=== PATIENT | female | born 1995 | race Caucasian/White ===

== ENCOUNTER 2016-09-13 18:14 | Emergency (ER) | payer OTHER ==
--- NOTE | 2016-09-13 20:10 | ER Document Report ---
ED Medical Screen (RME) - General Stated Complaint: VAGINAL BLEEDING WITH Notes: Patient complains of mild lower abdominal cramping with vaginal bleeding today. Patient is about 8 weeks . Patient states that at her last [facility] appointment she was told she has a yeast infection, and has been using Monistat as prescribed by her doctor. No known fever, patient does take likely just for occasional nausea. No vomiting. I have greeted and performed a rapid initial assessment of this patient. A comprehensive ED assessment and evaluation of the patient, analysis of test results and completion of the medical decision making process will be conducted by additional ED providers. - Related Data Allergies/Adverse Reactions: No Known Allergies Allergy (Unverified 09/13/16 20:09) Physical Exam - Vital signs Vitals: Temp Pulse Resp BP Pulse Ox 98.3 F 89 16 118/73 99 09/13/16 18:26 09/13/16 18:26 09/13/16 18:26 09/13/16 18:26 09/13/16 18:26 - Abdominal Notes: Mild tenderness lower abdomen, bowel sounds normal. Course - Vital Signs Vital signs: Temp Pulse Resp BP Pulse Ox 98.3 F 89 16 118/73 99 09/13/16 18:26 09/13/16 18:26 09/13/16 18:26 09/13/16 18:26 09/13/16 18:26
--- NOTE | 2016-09-14 00:18 | ER Document Report ---
ED GI/ - General Chief Complaint: Vag Bleeding, +preg <12wks Stated Complaint: VAGINAL BLEEDING WITH Time seen by provider: 00:18 Mode of Arrival: Ambulatory Information source: Patient TRAVEL OUTSIDE OF THE [place] 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, 3 days ago, had an ultrasound done and was reported to have a mild yeast infection, was started on Monistat cream, which she has been using, she had some mild cramping earlier in the day, but the spotting and cramping has stopped, patient is - Related Data Allergies/Adverse Reactions: No Known Allergies Allergy (Unverified 09/13/16 20:09) Past Medical History - General Information source: Patient - Social History Smoking Status: Never Smoker Chew tobacco use (# tins/day): No Frequency of alcohol use: None Drug Abuse: None Family History: Reviewed & Not Pertinent Patient has suicidal ideation: No Patient has homicidal ideation: No Renal/ Medical History: Denies: Hx Peritoneal Dialysis Review of Systems - Review of Systems Constitutional: No symptoms reported EENT: No symptoms reported Cardiovascular: No symptoms reported Respiratory: No symptoms reported Gastrointestinal: No symptoms reported Genitourinary: No symptoms reported Female Genitourinary: See HPI Musculoskeletal: No symptoms reported Skin: No symptoms reported Hematologic/Lymphatic: No symptoms reported Neurological/Psychological: No symptoms reported -: Yes All other systems reviewed and negative Physical Exam - Vital signs Vitals: Temp Pulse Resp BP Pulse Ox 98.3 F 89 16 118/73 99 09/13/16 18:26 09/13/16 18:26 09/13/16 18:26 09/13/16 18:26 09/13/16 18:26 Interpretation: Normal - General General appearance: Appears well, Alert - HEENT Head: Normocephalic, Atraumatic Eyes: Normal Pupils: PERRL - Respiratory Respiratory status: No respiratory distress Chest status: Nontender Breath sounds: Normal Chest palpation: Normal - Cardiovascular Rhythm: Regular Heart sounds: Normal auscultation Murmur: No - Abdominal Inspection: Normal Distension: No distension Bowel sounds: Normal Tenderness: Nontender Organomegaly: No organomegaly - Back Back: Normal, Nontender - Extremities General upper extremity: Normal inspection, Nontender, Normal color, Normal ROM , Normal temperature General lower extremity: Normal inspection, Nontender, Normal color, Normal ROM , Normal temperature, Normal weight bearing. No: Sylvester's sign - Neurological Neuro grossly intact: Yes Cognition: Normal Orientation: AAOx4 [place]i Coma Scale Eye Opening: Spontaneous [place] Coma Scale Verbal: Oriented [place] Coma Scale Motor: Obeys Commands [place] Coma Scale Total: 15 Speech: Normal Motor strength normal: LUE, RUE, LLE, RLE Sensory: Normal - Psychological Associated symptoms: Normal affect, Normal mood - Skin Skin Temperature: Warm Skin Moisture: Dry Skin Color: Normal Course - Re-evaluation Re-evalutation: 09/14/16 03:56 Lab and imaging findings discussed with patient at bedside, she was started on antibiotics for urinary tract infection and advised to follow-up with her OB/ PARTS PROFESSIONAL in one to 2 days or return if symptoms worsen, patient and spouse at bedside acknowledge understanding and agreement with this plan - Vital Signs Vital signs: Temp Pulse Resp BP Pulse Ox 98.3 F 97 16 124/70 99 09/14/16 02:22 09/14/16 02:22 09/14/16 02:22 09/14/16 02:22 09/14/16 02:22 - Laboratory Result Diagrams: 09/14/16 00:52 09/14/16 00:52 Laboratory results interpreted by me: 09/14/16 09/14/16 09/14/16 00:52 00:52 02:10 WBC 11.4 H Absolute Neutrophils 8.3 H BUN 5 L Creatinine 0.49 L Beta HCG, Quant 509610.00 H Urine Blood SMALL H Ur Leukocyte Esterase TRACE H - Diagnostic Test Radiology reviewed: Image reviewed, Reports reviewed Discharge - Discharge Clinical Impression: Vaginal bleeding before 22 weeks gestation Urinary tract infection Qualifiers: Urinary tract infection type: site unspecified Hematuria presence: without hematuria Qualified Code(s): N39.0 - Urinary tract infection, site not specified Condition: Stable Disposition: HOME, SELF-CARE Instructions: Urinary Tract Infection ([facility]), Vaginal Bleeding ([facility]) Additional Instructions: Follow up with your primary care provider in one to 2 days. Return to the emergency room immediately if symptoms worsen or any additional concerns. Prescriptions: Nitrofurantoin/Nitrofuran Mac [Macrobid 100 mg Capsule] 100 mg PO BID #20 capsule
[2016-09-14 01:21] LABS: ABSOLUTE EOSINOPHILS # (AUTO) 0.1 10^3/uL (0.0-0.6); ABSOLUTE LYMPHOCYTES (AUTO) 2.2 10^3/uL (0.5-4.7); ABSOLUTE MONOCYTES (AUTO) 0.8 10^3/uL (0.1-1.4); ABSOLUTE NEUT (AUTO) 8.3 10^3/uL (1.7-8.2); BASOPHILS % (AUTO) 0.3 % (0-2); HEMATOCRIT 37.3 % (36.0-47.0); HEMOGLOBIN 12.7 g/dL (12.0-15.5); HGB HCT DIFFERENCE 0.8; LYMPHOCYTES % (AUTO) 18.9 % (13-45); MEAN CORPUSCULAR HEMOGLOBIN 28.9 pg (27.0-33.4); MEAN CORPUSCULAR HGB CONC 33.9 g/dL (32.0-36.0); MEAN CORPUSCULAR VOLUME 85 fl (80-97); MONOCYTES % (AUTO) 7.1 % (3-13); RED BLOOD COUNT 4.39 10^6/uL (3.72-5.28); RED CELL DISTRIBUTION WIDTH 13.7 % (11.5-14.0); SEGMENTED NEUTROPHILS % (AUTO) 72.7 % (42-78); WHITE BLOOD COUNT 11.4 10^3/uL (4.0-10.5)
[2016-09-14 01:25] LABS: ALANINE AMINOTRANSFERASE 33 U/L (9-52); ALKALINE PHOSPHATASE 123 U/L (38-126); ANION GAP 12 (5-19); ASPARTATE AMINO TRANSFERASE 28 U/L (14-36); BILIRUBIN,TOTAL 0.3 mg/dL (0.2-1.3); BLOOD UREA NITROGEN 5 mg/dL (7-20); CALCIUM 9.6 mg/dL (8.4-10.2); CARBON DIOXIDE 25 mmol/L (22-30); CHLORIDE 101 mmol/L (98-107); CREATININE RESULT 0.49 mg/dL (0.52-1.25); GLUCOSE 92 mg/dL (75-110); POTASSIUM 4.5 mmol/L (3.6-5.0); SODIUM 138.3 mmol/L (137-145); TOTAL PROTEIN 6.8 g/dL (6.3-8.2)
[2016-09-14 02:29] LABS: AMORPHOUS SEDIMENT,URINE TRACE /HPF; APPEARANCE,URINE SLIGHTLY-CLOUDY; BILIRUBIN,URINE NEGATIVE (NEGATIVE); GLUCOSE, URINE NEGATIVE (NEGATIVE); KETONES,URINE NEGATIVE (NEGATIVE); LEUKOCYTE ESTERASE,URINE TRACE (NEGATIVE); NITRITE,URINE NEGATIVE (NEGATIVE); PROTEIN,URINE NEGATIVE (NEGATIVE); URINE SPECIFIC GRAVITY 1.011; UROBILINOGEN,URINE NEGATIVE mg/dL (<2.0)
[2016-09-14] MEDS ORDERED: NITROFURANTOIN MONOHYD/M-CRYST 100 MG CAPSULE PO ONE (02:36)
[2016-09-14 02:55] VITALS: BP 124/70
== END 2016-09-14 02:50 | disposition home or self-care (01) ==
LOC: ER 18:14
DX: O46.90 Antepartum hemorrhage, unspecified, unspecified trimester (principal); O23.40 Unspecified infection of urinary tract in pregnancy, unspecified trimester; O98.819 Other maternal infectious and parasitic diseases complicating pregnancy, unspecified trimester; B37.9 Candidiasis, unspecified; Z3A.00 Weeks of gestation of pregnancy not specified
CPT/HCPCS: 99284; 86900; 86901; 36415; 84702; 85025; 80053; 81001; 76817; 93976; J8499

== ENCOUNTER 2017-04-30 16:27 | Outpatient (CLI) | payer OTHER ==
[2017-04-30 17:10] LABS: APPEARANCE,URINE SLIGHTLY-CLOUDY; BILIRUBIN,URINE NEGATIVE (NEGATIVE); GLUCOSE, URINE NEGATIVE (NEGATIVE); KETONES,URINE NEGATIVE (NEGATIVE); LEUKOCYTE ESTERASE,URINE SMALL (NEGATIVE); NITRITE,URINE NEGATIVE (NEGATIVE); PROTEIN,URINE NEGATIVE (NEGATIVE); URINE SPECIFIC GRAVITY 1.013; UROBILINOGEN,URINE NEGATIVE mg/dL (<2.0)
[2017-04-30 17:41] LABS: URINE BARBITURATES SCREEN NEGATIVE; URINE METHADONE SCREEN NEGATIVE; URINE OPIATES LOW NEGATIVE; URINE PHENCYCLIDINE SCREEN NEGATIVE
== END 2017-04-30 17:14 | disposition home or self-care (01) ==
LOC: LC 16:27
PROVIDERS: ATTEND Obstetrics & Gynecology
PROC: 4A1HXCZ Monitoring of Products of Conception, Cardiac Rate, External Approach (ICD-10-PCS; principal; 2017-04-30)
DX: O47.1 False labor at or after 37 completed weeks of gestation (principal); Z3A.41 41 weeks gestation of pregnancy
CPT/HCPCS: 59025; 80307; 81005

== ENCOUNTER 2019-08-06 08:36 | Inpatient (IN) | payer OTHER ==
[2019-08-06] MEDS ORDERED: CEFAZOLIN SODIUM 2 GM in DEXTROSE 5%-WATER 100 ML IV PRN (09:22)
[2019-08-06 10:15] LABS: APPEARANCE,URINE CLOUDY; BILIRUBIN,URINE NEGATIVE (NEGATIVE); COLOR,URINE AMBER; GLUCOSE, URINE NEGATIVE (NEGATIVE); KETONES,URINE NEGATIVE (NEGATIVE); LEUKOCYTE ESTERASE,URINE LARGE (NEGATIVE); NITRITE,URINE NEGATIVE (NEGATIVE); PROTEIN,URINE 30 mg/dL (NEGATIVE); URINE SPECIFIC GRAVITY 1.025
[2019-08-06 10:21] LABS: ABSOLUTE EOSINOPHILS # (AUTO) 0.1 10^3/uL (0.0-0.6); ABSOLUTE LYMPHOCYTES (AUTO) 2.3 10^3/uL (0.5-4.7); ABSOLUTE MONOCYTES (AUTO) 0.7 10^3/uL (0.1-1.4); ABSOLUTE NEUT (AUTO) 7.6 10^3/uL (1.7-8.2); BASOPHILS % (AUTO) 0.4 % (0-2); EOSINOPHILS % (AUTO) 0.5 % (0-6); HEMATOCRIT 28.8 % (36.0-47.0); HEMOGLOBIN 9.4 g/dL (12.0-15.5); LYMPHOCYTES % (AUTO) 21.5 % (13-45); MEAN CORPUSCULAR HEMOGLOBIN 24.5 pg (27.0-33.4); MEAN CORPUSCULAR HGB CONC 32.8 g/dL (32.0-36.0); MEAN CORPUSCULAR VOLUME 75 fl (80-97); MONOCYTES % (AUTO) 6.8 % (3-13); PLATELET COUNT 258 10^3/uL (150-450); RED BLOOD COUNT 3.85 10^6/uL (3.72-5.28); RED CELL DISTRIBUTION WIDTH 15.6 % (11.5-14.0); SEGMENTED NEUTROPHILS % (AUTO) 70.8 % (42-78); TOTAL CELLS COUNTED % (AUTO) 100 %; WHITE BLOOD COUNT 10.7 10^3/uL (4.0-10.5)
[2019-08-06] MEDS ORDERED: INFLUENZA QUAD (6MOS+) 2019-20 VAC 0.5 ML SYR IM ONE (10:28)
[2019-08-06 10:30] LABS: URINE AMPHETAMINES SCREEN NEGATIVE; URINE BARBITURATES SCREEN NEGATIVE; URINE BENZODIAZEPINES SCREEN NEGATIVE; URINE COCAINE SCREEN NEGATIVE; URINE MARIJUANA (THC) SCREEN NEGATIVE; URINE METHADONE SCREEN NEGATIVE; URINE PHENCYCLIDINE SCREEN NEGATIVE
[2019-08-06] MEDS ORDERED: FENTANYL CITRATE INJ/PF 100 MCG/2 ML AMPUL ONE (11:39)
[2019-08-06] MEDS ORDERED: DIPHENHYDRAMINE HCL 50 MG/ML VIAL ONE (11:39)
[2019-08-06] MEDS ORDERED: MIDAZOLAM 2 MG/2 ML INJ ONE (11:39)
[2019-08-06] MEDS ORDERED: OXYTOCIN/NORMAL SALINE 20 UNIT/1,000 ML RTUINJ ONE (11:39)
[2019-08-06] MEDS ORDERED: KETOROLAC TROMETHAMINE INJ/PF 30 MG/1 ML SDV ONE ×2 (11:39→11:40)
[2019-08-06] MEDS ORDERED: OXYTOCIN 10 UNIT/ML VIAL ONE (11:39)
[2019-08-06] MEDS ORDERED: GLYCOPYRROLATE INJ 0.4 MG/2 ML VIAL ONE (11:39)
[2019-08-06] MEDS ORDERED: ONDANSETRON HCL INJ/PF 4 MG/2 ML SDV ONE (11:40)
[2019-08-06] MEDS ORDERED: ACETAMINOPHEN 1,000 MG/100 ML RTUPB IV ONE (11:40)
--- NOTE | 2019-08-06 13:12 | PDOC DELIVERY SUMMARY ---
Delivery Summary - Maternal Hx : II Hx # Term Pregnancies: 1 Hx # Pregnancies: 0 Hx Total # of Abortions (Sponateous & Elective): 0 CARLOS: 07/28/19 Gestational Age: 41.2 Ruptured Membranes: AROM Time of Rupture: 12:34 Fluids: Clear - Delivery Presentation: Vertex Heart Rate Monitoring: Done Pre-Operatively Support Person Present: Yes Location: OR : Scheduled Placenta: Within Normal Limits Delivery of Placenta Date: 08/06/19 Delivery of Placenta Time: 12:36 - Medications Type of Anesthesia:: Spinal - Assess and Care Baby 1 Male Delivery of Date: 08/06/19 Delivery of Infant Time: 12:35 at 1 minute: 8 at 5 minutes: 9 Preprinted Number On Band: [id number] Skin to Skin: No To Nursery At: 12:43 Mode of Transport: Bassinet Delivery Weight: 4,550 Infant Delivery Length: 21.75 in - Delivery Personnel Nursery RN: ANUEL JAFFE MD: NITZA MERCER
--- NOTE | 2019-08-06 13:15 | Operative Report ---
Operative Report DATE OF SURGERY: 08/06/19 PREOPERATIVE DIAGNOSIS: macrosomia POSTOPERATIVE DIAGNOSIS: Same with tight double nuchal cord OPERATION: Primary via low transverse uterine incision SURGEON: NITZA MERCER ANESTHESIA: Spinal TISSUE REMOVED OR ALTERED: Placenta COMPLICATIONS: None ESTIMATED BLOOD LOSS: 400 cc INTRAOPERATIVE FINDINGS: Viable male crying at delivery PROCEDURE: Patient was taken to the OR and placed in supine position after her spinal anesthesia. She is prepared and draped in sterile fashion. Malloy was placed for drainage of the bladder. Low transverse incision was made and carried down the level of the fascia. The fascial incision was made with knife and extended bilaterally with curved Eastman scissors. The fascia was off the rectus muscles using sharp and blunt dissection. The rectus muscles are in the midline. The peritoneum was entered without incident. Bladder blade was placed in uterine segment was identified. A low transverse incision was made creating a bladder flap. Bladder blade was placed low transverse uterine incision was made with the knife and extended with fingertips. The baby was delivered with some fundal pressure. The tight double nuchal cord was reduced. Mouth and nose were suctioned free. The cord is doubly clamped and cut. Baby is passed off to the platform inspector in attendance. The placenta was manually extracted with trailing membranes. The uterus was externalized wrapped in a moist lap sponge. Uterine contents wiped free. Uterus was closed with a running locking layer of 0 chromic suture using the second layer to imbricate the first completing a double layer closure of the uterus. The serosa was closed with a running 2-0 chromic stitch. The pelvis was irrigated and suctioned free of fluid the uterus was replaced in the abdomen. The abdominal wall peritoneum was closed with running 2-0 chromic stitch. Fascia was closed with a running 0 Vicryl in 2 segments. Zachary's layer was brought together with 0 plain gut stitch and the skin was closed with running subcuticular 4-0 undyed Vicryl stitch. The wound was dressed mother and baby did well.
[2019-08-06] MEDS ORDERED: ONDANSETRON HCL INJ/PF 4 MG/2 ML SDV IV PRN (13:19)
[2019-08-06] MEDS ORDERED: MEPERIDINE HCL/PF INJ 25 MG/1 ML DISP.SYRIN IV PRN (13:19)
[2019-08-06] MEDS ORDERED: MORPHINE SULFATE 10 MG/ML INJ IV PRN (13:19)
[2019-08-06] MEDS ORDERED: FENTANYL CITRATE INJ/PF 100 MCG/2 ML AMPUL IV PRN ×3 (13:19)
[2019-08-06] MEDS ORDERED: OXYCODONE-ACETAMINOPHEN 5-325 MG TABLET PO PRN ×4 (13:19→17:06)
[2019-08-06] MEDS ORDERED: DIPHENHYDRAMINE HCL 50 MG/ML VIAL IV PRN (13:19)
[2019-08-06] MEDS ORDERED: PROMETHAZINE HCL INJ 25 MG/1 ML VIAL IV PRN ×3 (13:19→17:06)
[2019-08-06] MEDS ORDERED: OXYTOCIN/NORMAL SALINE 20 UNIT/1,000 ML RTUINJ IV PRN (17:06)
[2019-08-06] MEDS ORDERED: MEASLES,MUMPS&RUBELLA VACC/PF 0.5 ML VIAL SUBCUT PRN (17:06)
[2019-08-06] MEDS ORDERED: ACETAMINOPHEN 325 MG TABLET PO PRN (17:06)
[2019-08-06] MEDS ORDERED: SIMETHICONE 80 MG TAB.CHEW PO PRN (17:06)
[2019-08-06] MEDS ORDERED: ACETAMINOPHEN 1,000 MG/100 ML RTUPB IV PRN (17:06)
[2019-08-06] MEDS ORDERED: DIPH/PERTUSS(ACELL)/TETANUS VAC/PF 0.5 ML SYR (>=10YO) IM PRN (17:06)
[2019-08-06] MEDS ORDERED: HYDROMORPHONE HCL INJ/PF 2 MG/ML AMPULE IV PRN (17:06)
[2019-08-06] MEDS ORDERED: OXYCODONE-ACETAMINOPHEN 5-325 MG TABLET ONE (17:23)
[2019-08-06] MEDS: DOCUSATE SODIUM 100 MG CAPSULE PO SCH (18:14)
[2019-08-06] MEDS: RINGERS SOLUTION,LACTATED 1,000 ML IV PRN (18:55)
[2019-08-06] MEDS: KETOROLAC TROMETHAMINE INJ/PF 30 MG/1 ML SDV IV SCH (22:01)
[2019-08-07] MEDS: RINGERS SOLUTION,LACTATED 1,000 ML IV PRN (02:58)
[2019-08-07] MEDS: KETOROLAC TROMETHAMINE INJ/PF 30 MG/1 ML SDV IV SCH ×2 (05:08→15:29)
[2019-08-07 07:49] LABS: HEMATOCRIT 29.7 % (36.0-47.0); HEMOGLOBIN 9.6 g/dL (12.0-15.5); MEAN CORPUSCULAR HEMOGLOBIN 24.2 pg (27.0-33.4); MEAN CORPUSCULAR HGB CONC 32.2 g/dL (32.0-36.0); MEAN CORPUSCULAR VOLUME 75 fl (80-97); PLATELET COUNT 248 10^3/uL (150-450); RED BLOOD COUNT 3.95 10^6/uL (3.72-5.28)
[2019-08-07] MEDS: DOCUSATE SODIUM 100 MG CAPSULE PO SCH ×2 (10:10→17:59)
[2019-08-07] MEDS: PRENATAL VITAMIN W DHA CAPSULE PO SCH (10:10)
--- NOTE | 2019-08-07 10:46 | PDOC PROGRESS REPORT ---
Subjective-OB Progress Note for:: 08/07/19 Subjective: Doing well, no c/o, eating well, voiding, ambulating, , + gas Physical Exam (OB) Vital Signs: Temp Pulse Resp BP Pulse Ox 98.1 F 74 18 102/64 97 08/07/19 07:38 08/07/19 07:38 08/07/19 07:38 08/07/19 07:38 08/07/19 07:38 Intake & Output 08/06/19 08/07/19 08/08/19 06:59 06:59 06:59 Intake Total 3140 Output Total 2500 Balance 640 Weight 102.512 kg - Dressing Removed: No Incision: Dressing - Lochia Lochia Amount: Small 10-25 ml Lochia Color: Rubra/Red - Abdomen Description: Tender, Soft Hernia Present: No Fundal Description: Firm, Midline Fundal Height: u/u - u/2 Objective-Diagnostic Laboratory: 08/07/19 07:31 08/06/19 08/07/19 09:58 07:31 WBC 12.0 H RBC 3.95 Hgb 9.6 L Hct 29.7 L MCV 75 L MCH 24.2 L MCHC 32.2 RDW 16.0 H Plt Count 248 Blood Type O POSITIVE Antibody Screen NEGATIVE Assessment and Plan(PN) - Assessment and Plan (1) Macrosomia affecting management of mother in third trimester Qualifiers: Fetus number: single or unspecified fetus Qualified Code(s): O36.63X0 - Maternal care for excessive growth, third trimester, not applicable or unspecified Is this a current diagnosis for this admission?: Yes (2) Anemia Qualifiers: Anemia type: iron deficiency Is this a current diagnosis for this admission?: Yes (3) S/P primary low transverse Is this a current diagnosis for this admission?: Yes - Time Spent with Patient Time with patient: Less than 15 minutes Medications reviewed and adjusted accordingly: Yes - Disposition Anticipated Discharge: Home Within: within 24 hours
[2019-08-07] MEDS: IBUPROFEN 800 MG TABLET PO SCH (23:04)
[2019-08-08] MEDS: IBUPROFEN 800 MG TABLET PO SCH ×2 (05:49→13:19)
[2019-08-08] MEDS: DOCUSATE SODIUM 100 MG CAPSULE PO SCH (09:40)
[2019-08-08] MEDS: PRENATAL VITAMIN W DHA CAPSULE PO SCH (09:40)
--- NOTE | 2019-08-08 10:08 | PDOC PROGRESS REPORT ---
Subjective-OB Progress Note for:: 08/08/19 Subjective: Doing well, no c/o, voiding, pain under control, eating, + gas, ambulating Physical Exam (OB) Vital Signs: Temp Pulse Resp BP Pulse Ox 97.9 F 65 16 105/65 96 08/08/19 07:51 08/08/19 07:51 08/08/19 07:51 08/08/19 07:51 08/08/19 07:51 Intake & Output 08/07/19 08/08/19 08/09/19 06:59 06:59 06:59 Intake Total 3140 1380 Output Total 2500 Balance 640 1380 Weight 102.512 kg - PIH/Pre-Eclampsia Headache: Absent Epigastric Pain: No Visual Changes: No - Dressing Removed: Yes Incision: Open, Well Approximated Closure Type: Surgical Glue - Lochia Lochia Amount: Scant < 10 ml Lochia Color: Rubra/Red - Abdomen Description: Soft Hernia Present: No Fundal Description: Firm, Midline Fundal Height: u/u - u/2 Objective-Diagnostic Laboratory: 08/07/19 07:31 Assessment and Plan(PN) - Assessment and Plan (1) Macrosomia affecting management of mother in third trimester Qualifiers: Fetus number: single or unspecified fetus Qualified Code(s): O36.63X0 - Maternal care for excessive growth, third trimester, not applicable or unspecified Is this a current diagnosis for this admission?: Yes (2) Anemia Qualifiers: Anemia type: iron deficiency Is this a current diagnosis for this admission?: Yes (3) S/P primary low transverse Is this a current diagnosis for this admission?: Yes - Time Spent with Patient Time with patient: Less than 15 minutes Medications reviewed and adjusted accordingly: Yes - Disposition Anticipated Discharge: Home Within: within 24 hours
--- NOTE | 2019-08-08 10:19 | PDOC DISCHARGE SUMMARY ---
Impression - Admit/DC Date/PCP Admission Date/Primary Care Provider: 08/06/19 08:36 NITZA MERCER MD Discharge Date: 08/08/19 - Discharge Diagnosis (1) Macrosomia affecting management of mother in third trimester Is this a current diagnosis for this admission?: Yes (2) Anemia Is this a current diagnosis for this admission?: Yes (3) S/P primary low transverse Is this a current diagnosis for this admission?: Yes - Additional Information Resuscitation Status: Full Code Discharge Diet: As Tolerated, Regular Discharge Activity: Balance Activity w/Rest, No Lifting Over 10 Pounds, Pelvic Rest, No tub bath Referrals: NITZA MERCER MD [Primary Care Provider] - (wha 1 week) Prescriptions: Oxycodone HCl/Acetaminophen [Percocet 5-325 mg Tablet] 1 tab PO Q4HP PRN #20 tablet PRN Reason: Ibuprofen [Motrin 800 mg Tablet] 800 mg PO Q6 #30 tablet Home Medications: Vit,Calc76/Iron/Folic [Prenatabs Rx Tablet] 1 tab PO DAILY 04/30/17 Ferrous Sulfate [Feosol 325 mg Tablet] 325 mg PO QAM #60 tablet 05/04/17 Ibuprofen [Motrin 800 mg Tablet] 800 mg PO Q6 #30 tablet 08/08/19 Oxycodone HCl/Acetaminophen [Percocet 5-325 mg Tablet] 1 tab PO Q4HP PRN #20 tablet 08/08/19 HPI Gestational Age: 41 Reason(s) for Admission: Ceasarean Section-Primary Admission Note: Mcrosomia Procedures: NST, Ultrasound Hospital Course Hospital Course: normal Results Laboratory Results: WBC 12.0 10^3/uL (4.0-10.5) H 08/07/19 07:31 RBC 3.95 10^6/uL (3.72-5.28) 08/07/19 07:31 Hgb 9.6 g/dL (12.0-15.5) L 08/07/19 07:31 Hct 29.7 % (36.0-47.0) L 08/07/19 07:31 MCV 75 fl (80-97) L 08/07/19 07:31 MCH 24.2 pg (27.0-33.4) L 08/07/19 07:31 MCHC 32.2 g/dL (32.0-36.0) 08/07/19 07:31 RDW 16.0 % (11.5-14.0) H 08/07/19 07:31 Plt Count 248 10^3/uL (150-450) 08/07/19 07:31 Lymph % (Auto) 21.5 % (13-45) 08/06/19 09:58 [place] % (Auto) 6.8 % (3-13) 08/06/19 09:58 Eos % (Auto) 0.5 % (0-6) 08/06/19 09:58 Baso % (Auto) 0.4 % (0-2) 08/06/19 09:58 Absolute Neuts (auto) 7.6 10^3/uL (1.7-8.2) 08/06/19 09:58 Absolute Lymphs (auto) 2.3 10^3/uL (0.5-4.7) 08/06/19 09:58 Absolute Monos (auto) 0.7 10^3/uL (0.1-1.4) 08/06/19 09:58 Absolute Eos (auto) 0.1 10^3/uL (0.0-0.6) 08/06/19 09:58 Absolute Basos (auto) 0.0 10^3/uL (0.0-0.2) 08/06/19 09:58 Seg Neutrophils % 70.8 % (42-78) 08/06/19 09:58 Urine Color AVINASH 08/06/19 09:54 Urine Appearance CLOUDY 08/06/19 09:54 Urine pH 6.0 (5.0-9.0) 08/06/19 09:54 Ur Specific [place] 1.025 08/06/19 09:54 Urine Protein 30 mg/dL (NEGATIVE) H 08/06/19 09:54 Urine Glucose (UA) NEGATIVE mg/dL (NEGATIVE) 08/06/19 09:54 Urine Ketones NEGATIVE mg/dL (NEGATIVE) 08/06/19 09:54 Urine Blood LARGE (NEGATIVE) H 08/06/19 09:54 Urine Nitrite NEGATIVE (NEGATIVE) 08/06/19 09:54 Urine Bilirubin NEGATIVE (NEGATIVE) 08/06/19 09:54 Urine Urobilinogen 2.0 mg/dL (<2.0) H 08/06/19 09:54 Ur Leukocyte Esterase LARGE (NEGATIVE) H 08/06/19 09:54 Urine WBC (Auto) 109 /HPF 08/06/19 09:54 Urine RBC (Auto) 5 /HPF 08/06/19 09:54 Urine WBC Clumps FEW /HPF 08/06/19 09:54 Squamous Epi Cells Auto 17 /HPF 08/06/19 09:54 Urine Mucus (Auto) MANY /LPF 08/06/19 09:54 Urine Ascorbic Acid NEGATIVE (NEGATIVE) 08/06/19 09:54 Urine Opiates Screen NEGATIVE 08/06/19 09:54 Urine Methadone Screen NEGATIVE 08/06/19 09:54 Ur Barbiturates Screen NEGATIVE 08/06/19 09:54 Ur Phencyclidine Scrn NEGATIVE 08/06/19 09:54 Ur Amphetamines Screen NEGATIVE 08/06/19 09:54 U Benzodiazepines Scrn NEGATIVE 08/06/19 09:54 Urine Cocaine Screen NEGATIVE 08/06/19 09:54 U Marijuana (THC) Screen NEGATIVE 08/06/19 09:54 Blood Type O POSITIVE 08/06/19 09:58 Antibody Screen NEGATIVE 08/06/19 09:58 Plan Health Concerns: infection, pain Plan of Treatment: Pin meds, Rev S&S to report of infection Goals: complications Time Spent: Less than 30 Minutes
[2019-08-08 12:41] VITALS: BP 105/65
== END 2019-08-08 14:01 | disposition home or self-care (01) | DRG 788 ==
LOC: 2S 08:36
PROVIDERS: ADMIT Obstetrics & Gynecology; ATTEND Obstetrics & Gynecology
PROC: 10D00Z1 Extraction of Products of Conception, Low, Open Approach (ICD-10-PCS; principal; 2019-08-06 11:45)
DX: O48.0 Post-term pregnancy (principal); O36.63X0 Maternal care for excessive fetal growth, third trimester, not applicable or unspecified; O99.02 Anemia complicating childbirth; D50.9 Iron deficiency anemia, unspecified; O99.62 Diseases of the digestive system complicating childbirth; K58.9 Irritable bowel syndrome, unspecified; Z3A.41 41 weeks gestation of pregnancy; Z37.0 Single live birth
CPT/HCPCS: 1961; 36415; 80307; 81001; 85025; 85027; 86850; 86900; 86901; 90686; 94799; J0131; J0690; J1170; J1200; J1885; J2250; J2405; J2590; J3010; J3490; J7060; J7120